=== PATIENT | male | born 1965 | race Caucasian/White ===

== ENCOUNTER 2017-02-12 18:33 | Emergency (ER) | payer MEDICARE | END 2017-02-12 20:54 | disposition home or self-care (01) | LOC: FER 18:33 | DX: M51.16 Intervertebral disc disorders with radiculopathy, lumbar region (principal); G89.29 Other chronic pain; F17.210 Nicotine dependence, cigarettes, uncomplicated; Z85.9 Personal history of malignant neoplasm, unspecified; Z88.0 Allergy status to penicillin; Z88.8 Allergy status to other drugs, medicaments and biological substances | CPT/HCPCS: 72125; 72128; 72131; J1100; J1885 ==

== ENCOUNTER 2017-02-20 20:42 | Emergency (ER) | payer MEDICARE ==
[2017-02-20 21:10] LABS: BASOPHIL 0.1 % (0-2); EOSINOPHIL 0.6 % (0-5); HCT 43.6 % (42.0-52.0); HGB 15.4 g/dl (13.2-18.0); LYMPHOCYTE 17.9 % (15-48); MCH 31.5 pg (25.0-31.0); MCHC 35.3 g/dL (32.0-36.0); MCV 89.2 fL (78.0-100.0); MONOCYTE 9.1 % (0-12); MPV 9.3 fL (6.0-9.5); NEUTROPHIL 72.3 % (41-80); PLT 279 K/uL (150-400); RBC 4.89 M/uL (4.70-6.00); RDW 13.4 % (11.5-14.0); WBC 18.1 K/uL (4.0-10.5)
[2017-02-20 21:21] LABS: INR 1.02 (0.9-1.2); PTT 26.9 SECONDS (23.2-31.4)
[2017-02-20 21:22] LABS: D-DIMER 0.28 ug/mLFEU (0.00-0.41)
[2017-02-20 21:26] LABS: ALCOHOL (ETOH) MEDICAL NONE DETECTED
[2017-02-20 21:29] LABS: CKMB 1.78 ng/mL (0.97-4.94); TROPONIN T < 0.010 ng/mL
[2017-02-20 21:33] LABS: ALBUMIN 3.8 g/dL (3.5-5.0); BILIRUBIN - TOTAL 0.5 mg/dL (0.1-1.0); CREATININE 1.2 mg/dL (0.7-1.2); GLOBULIN (CALCULATION) 2.2 g/dL (2.2-4.2); MAGNESIUM 1.89 mg/dL (1.40-2.10); PHOSPHORUS 3.9 mg/dL (2.7-4.5); POTASSIUM 4.1 mmol/L (3.5-5.1)
[2017-02-20 23:36] LABS: BILIRUBIN NEGATIVE (NEGATIVE); BLOOD 3+ Ery/uL (NEGATIVE); CLARITY CLEAR (CLEAR); COLOR YELLOW (YELLOW); GLUCOSE (U) NORMAL (NORMAL); KETONE (U) NEGATIVE (NEGATIVE); LEUKOCYTES NEGATIVE Leu/uL (NEGATIVE); NITRITE NEGATIVE (NEGATIVE); PROTEIN 2+ mg/dL (NEGATIVE); SPECIFIC GRAVITY <=1.005 (1.001-1.030); UROBILINOGEN 0.2 mg/dL (0.2-1.0); pH 6.5 (5.0-9.0)
[2017-02-20 23:41] LABS: BACTERIA TRACE; MUCOUS MODERATE; URINARY WBC RARE
[2017-02-20 23:45] LABS: AMPHETAMINES NEGATIVE (NEGATIVE); BARBITURATES NEGATIVE (NEGATIVE); BENZODIAZEPINES NEGATIVE (NEGATIVE); COCAINE NEGATIVE (NEGATIVE); MARIJUANA (THC) NEGATIVE (NEGATIVE); METHADONE NEGATIVE (NEGATIVE); TRICYCLIC ANTIDEPRESSANT NEGATIVE (NEGATIVE)
== END 2017-02-21 00:54 | disposition home or self-care (01) ==
LOC: FER 20:42
PROVIDERS: Emergency Medicine Emergency Medical Services
DX: R55 Syncope and collapse (principal); H70.001 Acute mastoiditis without complications, right ear; R53.1 Weakness; E86.9 Volume depletion, unspecified; F11.90 Opioid use, unspecified, uncomplicated; Z85.01 Personal history of malignant neoplasm of esophagus
CPT/HCPCS: 36415; 70450; 71010; 80053; 80305; 81001; 82550; 82553; 83605; 83735; 84100; 84443; 84484; 85025; 85379; 85610; 85730; 87040; 93005; G0480

== ENCOUNTER 2021-02-16 23:56 | Emergency (ER) | payer MEDICARE ==
[~2021-02-16 23:56] MED LIST: AZITHROMYCIN250 MG PO; MEDROL 4MG DOSEP4 MG PO; MOTRIN600 MG PO; PERCOCET 10/321 EACH PO; ROBITUSSIN W/COD5 ML PO; TESSALON PERLE100 M1 PO; VENTOLIN HFA IN18 GM INH
[2021-02-17 01:01] LABS: AMPHETAMINES NEGATIVE (NEGATIVE); BARBITURATES NEGATIVE (NEGATIVE); ECSTASY (MDMA) NEGATIVE (NEGATIVE); MARIJUANA (THC) NEGATIVE (NEGATIVE); METHADONE NEGATIVE (NEGATIVE); OPIATES NEGATIVE (NEGATIVE); OXYCODONE NEGATIVE (NEGATIVE)
[2021-02-17 01:15] LABS: BASOPHIL 0.8 % (0-2); EOSINOPHIL 1.1 % (0-5); HCT 37.1 % (42.0-52.0); HGB 12.4 g/dl (13.2-18.0); LYMPHOCYTE 27.3 % (15-48); MCH 31.7 pg (25.0-31.0); MCHC 33.4 g/dL (32.0-36.0); MCV 94.9 fL (78.0-100.0); MONOCYTE 9.2 % (0-12); MPV 11.1 fL (6.0-9.5); NEUTROPHIL 61.3 % (41-80); NRBC 0; PLT 151 K/uL (150-400); RBC 3.91 M/uL (4.70-6.00); RDW 12.9 % (11.5-14.0); WBC 9.8 K/uL (4.0-10.5)
[2021-02-17 01:50] LABS: ALBUMIN 3.2 g/dL (3.4-5.0); ALKALINE PHOSHATASE 101 U/L (46-116); ALT 25 U/L (16-63); AST 21 U/L (15-37); BILIRUBIN - TOTAL 0.5 mg/dL (0.2-1.0); BUN 3 mg/dL (7-18); CHLORIDE 107 mmol/L (98-107); CO2 (BICARBONATE) 28 mmol/L (21-32); CPK 93 U/L (39-308); CREATININE 1.07 mg/dL (0.67-1.17); GLOBULIN (CALCULATION) 3.4 g/dL; GLUCOSE 90 mg/dL (74-106); LIPASE 131 U/L (73-393); POTASSIUM 3.5 mmol/L (3.5-5.1); TOTAL PROTEIN 6.6 g/dL (6.4-8.2)
[2021-02-17 02:01] LABS: BILIRUBIN NEGATIVE (NEGATIVE); BLOOD TRACE-INTACT Ery/uL (NEGATIVE); CLARITY CLEAR (CLEAR); GLUCOSE (U) NORMAL (NORMAL); LEUKOCYTES NEGATIVE Leu/uL (NEGATIVE); NITRITE NEGATIVE (NEGATIVE); PROTEIN NEGATIVE (NEGATIVE); SPECIFIC GRAVITY <=1.005 (1.001-1.030); UROBILINOGEN 0.2 mg/dL (0.2-1.0)
[2021-02-17 02:07] LABS: COLOR STRAW (YELLOW)
[2021-02-17] MEDS ORDERED: BENTYL10 MG PO (02:25)
[2021-02-17] MEDS ORDERED: ONDANSETRON ODT4 MG SL (02:25)
== END 2021-02-17 02:35 | disposition home or self-care (01) ==
LOC: FER 23:56
PROVIDERS: Emergency Medicine Emergency Medical Services
DX: R10.13 Epigastric pain (principal); F17.210 Nicotine dependence, cigarettes, uncomplicated; Z20.822 Contact with and (suspected) exposure to COVID-19; Z88.0 Allergy status to penicillin; R42 Dizziness and giddiness; Z79.891 Long term (current) use of opiate analgesic
CPT/HCPCS: 36415; 80053; 80305; 81001; 82550; 83605; 83690; 84145; 84484; 85025; 96372; G0480; J0500; J2405; J7030; U0002